=== PATIENT | female | born 1990 | race Caucasian/White ===

== ENCOUNTER 2018-11-11 10:16 | Emergency (ER) | payer SELFPAY ==
--- NOTE | 2018-11-11 10:19 | PDOC ---
History of Present Illness - General Chief Complaint: Sore Throat Stated Complaint: SORE THROAT Time Seen by Provider: 11/11/18 10:19 - History of Present Illness Initial Comments: 11/11/18 10:49 Chief complaint sore throat History of present illness: 28 years old breast-feeding status post 2 months ago presents to the ED with 2-3 day history of sore throat ear pain and some congestion. with similar symptoms prior but not quite as a severe sore throat. No fevers mild headache no neck stiffness no rash symptoms are moderate persistent constant with no exacerbating or alleviating factors Past History - Past Medical History Allergies/Adverse Reactions: Allergies Allergy/AdvReac Type Severity Reaction Status Date / Time No Known Allergies Allergy Verified 11/11/18 10:17 Home Medications: Ambulatory Orders Prenat 115/Iron Fum/Folic/Dss [ 19 Tablet] 1 each PO DAILY 11/11/18 Review of Systems - Review of Systems Comments:: 11/11/18 10:50 ROS: A complete review of 10 out of 10 review of systems is taken and is negative apart from what is previously mentioned below and in the HPI. *Physical Exam - Physical Exam Comments: 11/11/18 10:51 Vitals: Triage Vital signs reviewed General Appearance: no acute distress, well nourished well developed, Head: Atraumatic, Eyes: Pupils equal reactive round, extraocular movement intact Ears: TM's normal bilaterally; Nose: Nares patent bilaterally;no nasal congestion Throat: Posterior oropharynx with erythema, no exudates mucous membranes moist, Neck: Supple;No Nucal rigidity Chest Wall: Nontender Cardiac: Regular rate and rhythym, no murmurs, no rubs, no gallops, Lungs: Clear to auscultation bilateral, good air movement bilaterally, Extremities: Full range of motion to all extremities, no cyanosis, clubbing, or edema Skin: Warm and dry, no rashes or lesions, no rash, no petechiae Psych: normal mood, normal affect General Appearance: Yes: Disheveled Medical Decision Making - Medical Decision Making 11/11/18 10:52 Well-appearing no apparent distress history examination consistent with viral pharyngitis versus strep throat Given and breast-feeding options are limited discussed pros and cons of IM Decadron Patient would like to try for symptomatic relief Rapid strep sent. Reevaluation rapid strep negative history examination now most consistent with viral pharyngitis. We'll recommend continuing Tylenol every 6 hours hydrating for the next 23 days. Patient will return to the ED for any severe worsening symptoms or for any concerns. Findings, the need for follow-up, strict return instructions discussed with patient. *DC/Admit/Observation/Transfer Diagnosis at time of Disposition: Pharyngitis Qualifiers: Pharyngitis/tonsillitis etiology: unspecified etiology Qualified Code(s): J02.9 - Acute pharyngitis, unspecified - Discharge Dispostion Disposition: HOME Condition at time of disposition: Stable Decision to Admit order: No - Referrals - Patient Instructions Printed Discharge Instructions: Viral Pharyngitis Additional Instructions: Drink plenty of fluids. Continue to take Tylenol every 6 hours for the next 2-3 days. Return to the emergency department immediately for any difficulty swallowing difficulty breathing very severe worsening symptoms or for any concerns. - Post Discharge Activity
[2018-11-11 10:20] VITALS: BP 123/84; PULSE 98; TEMP 99.6; BMI 32.5
[2018-11-11] MEDS ORDERED: ACETAMINOPHEN 325 MG TABLET (FP) PO ONE (10:39)
[2018-11-11] MEDS ORDERED: DEXAMETHASONE SOD PHOSPHATE 4 MG/1 ML VIAL IM ONE (10:39)
[2018-11-11] MEDS ORDERED: ACETAMINOPHEN 325 MG TABLET (FP) ONE (10:42)
[2018-11-11] MEDS ORDERED: DEXAMETHASONE SOD PHOSPHATE 4 MG/1 ML VIAL ONE (10:42)
--- NOTE | 2018-11-13 10:02 | PDOC ---
Patient Follow-up (Call Back) - Post ED Follow - Up Condition at time of discharge: Stable Disposition at time of original discharge: HOME - Disposition Additional Instructions/Notes: Received a call from lab that throat culture is + for group A strep Attempted to call pt at listed number, , no answer but left VM for pt to call us back
== END 2018-11-11 11:15 | disposition home or self-care (01) ==
LOC: FER 10:16
DX: J02.9 Acute pharyngitis, unspecified (principal)
CPT/HCPCS: 87070; 87880; 99281-25